=== PATIENT | male | born 1990 | race Hispanic/Latino ===

== ENCOUNTER 2025-01-13 03:00 | Emergency (ER) | payer BC ==
[~2025-01-13] VITALS: Ht 175.3 cm; Wt 94.3 kg
--- NOTE | 2025-01-13 03:07 | NUR ---
COVID, FLU AND STREP SWABS COLLECTED AND SENT
[2025-01-13 03:53] LABS: RAPID GROUP A STREP negative (NEGATIVE)
[2025-01-13 04:01] LABS: SARS-CoV-2, RNA, NAAT NEGATIVE SARS CoV-2 (NEGATIVE)
[2025-01-13 04:02] LABS: INFLUENZA TYPE B Negative For Type B (NEGATIVE)
[2025-01-13 04:05] LABS: INFLUENZA TYPE A Positive For Type A (NEGATIVE)
[2025-01-13] MEDS ORDERED: OSEL75 PO (04:11)
--- NOTE | 2025-01-13 04:12 | ERN ---
ED Note History of Present Illness Stated Complaint: FEVER, BODYACHES, COUGH Chief Complaint: Flu Symptoms Time Seen by MD: 03:02 Dictation: This is a 34-year-old male who presented to the emergency room with a 2 day history of fever with chills body aches and cough. Patient also reported that other family members are sick including his mother who accompanied him to the ER. He reported that he has been coughing up some sputum which is brown at times but denied any hemoptysis to me. He stated that since he has been coughing even his testicles and inguinal area hurts. Patient's mother reported that he had a temp of 101 at home and he has been taking [id number]-dhl-trkxulo NyQuil with no improvement Temperature a 100.2 pulse 92 respirations 20 blood pressure 151/92 with a pulse oximetry of 98% on room air Allergies: Coded Allergies: No Known Allergies (Unverified Allergy, Unknown, 01/13/25) Home Meds Active Scripts Oseltamivir Phosphate (Tamiflu) 75 Mg Cap, 75 MG PO BID for 5 Days, #10 CAP 0 Refills Prov:DOMINGA EDUARDO MD 01/13/25 Past Medical History Past Medical History: No Pertinent History Surgical History: None Family History: Negative Social History: Negative RN Note Reviewed/Agreed w/PFSH: Yes Review of System Dictation Constitutional: Positive for fever,chills, Eyes: Negative for injury, pain,redness, and discharge ENT: Negative for injury,pain or swelling Cardiovascular: Positive for chest discomfort from coughing, denies palpitations, and edema Respiratory: Negative for shortness of breath, cough, and wheezing, Abdomen/GI: Negative for abdominal pain, nausea, vomiting, diarrhea, and constipation Back: Negative for injury and pain : Negative for injury, bleeding and discharge positive for left inguinal pain from coughing MS/Extremity: Negative for injury and deformity Skin: Negative for rash, and discoloration Neuro: Negative for headache, weakness, numbness, tingling, and seizure Psych: Negative for suicide ideation, homicidal ideation, and hallucinations Initial Vital Sign VS Vital Signs Date Time Temp Pulse Resp B/P (MAP) Pulse Ox O2 Delivery O2 Flow Rate FiO2 01/13/25 03:02 100.2 92 20 151/92 98 Room Air 01/13/25 04:18 0 21 Physical Exam Dictation General: awake, alert, NAD coughing during the examination Head/Face: Normocephalic, atraumatic Eyes: PERRL, EOMI, vision at baseline ENT: oral cavity clear, TMs clear, no signs of infection Neck: Trachea midline, supple, no nuchal rigidity Cardiovascular: RRR, normal S1/S2, No MRGs, no JVD Respiratory: CTAB, no respiratory distress, No rales or wheezes Abdomen: Soft, mild tenderness in the left lower quadrant and inguinal area but no erythema rebound, non-distended, normal bowel sounds, no guarding or rebound. Skin: Warm, dry, normal turgor, no rash MS/Extremity: Pulses equal, no cyanosis, neurovascular intact, FROM Neuro: COAx4, GCS 15, strength 5/5, CN 2-12 intact, normal cerebellar exam, normal gait, Psych: Normal behavior, mood, and affect normal Extremities-trace edema without any palpable cords, Homans sign is negative Results (Laboratory/Radiology) Laboratory/Radiology Laboratory Tests Test 01/13/25 03:07 Influenza Type A Antigen Positive For Type A Influenza Type B Antigen Negative For Type B SARS-CoV-2, RNA, NAAT NEGATIVE SARS CoV-2 Group A Streptococcus Rapid negative (NEGATIVE) Labs Reviewed?: Yes ED Course ED Course Orders Procedure Category Date Status Time Influenza Type A & B, LAB 01/13/25 Complete Rapid 03:05 Rapid (Group A Strep) LAB 01/13/25 Complete 03:05 Chest 1vw RAD 01/13/25 Taken 03:05 Covid Rna Naat LAB 01/13/25 Complete 03:45 Oseltamivir Phosphate PHA 01/13/25 Complete (Tamiflu) 04:30 Ketorolac PHA 01/13/25 Complete Tromethamine 30mg/Ml 04:30 Acetaminophen 500mg PHA 01/13/25 Complete Tab (Tylenol 500mg T 04:30 Current Medications Medications (Trade) Dose Ordered Sig/Ada Route PRN Reason Start Time Stop Time Status Last Admin Dose Admin Acetaminophen (TYLenol 500MG TAB) 1,000 mg ONCE ONCE PO 01/13/25 04:30 01/13/25 04:31 DC 01/13/25 04:25 Ketorolac Tromethamine (toRADol) 30 mg ONCE ONCE IM 01/13/25 04:30 01/13/25 04:31 DC 01/13/25 04:31 Oseltamivir Phosphate (Tamiflu) 75 mg ONCE ONCE PO 01/13/25 04:30 01/13/25 04:31 DC 01/13/25 04:25 Vital Signs Date Time Temp Pulse Resp B/P (MAP) Pulse Ox O2 Delivery O2 Flow Rate FiO2 01/13/25 04:25 102.7 01/13/25 04:18 102.7 83 18 126/59 97 Room Air* 0 21 01/13/25 03:02 100.2 92 20 151/92 98 Room Air Medical Decision Making MDM Differential diagnosis: Influenza, COVID, RSV, streptococcal pharyngitis, otitis media, acute viral syndrome This is a 34-year-old male who presented to the emergency room with a 2 day history of fever with chills body aches and cough. Patient also reported that other family members are sick including his mother who accompanied him to the ER. He reported that he has been coughing up some sputum which is brown at times but denied any hemoptysis to mo. He stated that since he has been coughing even his testicles and inguinal area hurts. Patient's mother reported that he had a temp of 101 at home and he has been taking [id number]-ect-pchlpqr NyQuil with no improvement Temperature a 100.2 pulse 92 respirations 20 blood pressure 151/92 with a pulse oximetry of 98% on room air Serology testing for influenza a positive. Influenza B COVID and strep rapid t est are all negative. Chest x-ray shows mild prominence of the interstitial markings with possible early infiltrate in the left base. I do not have any old x-ray to compare. A dose of Tamiflu, and symptomatic management. Patient will be discharged to [facility] on Tamiflu and a Z-Fredy for any superimposed bronchitis Rationale: Tests considered and ordered secondary to shared decision making include: Previous outside records reviewed: Old ER visits. Risk of complication and/or morbidity or mortality of patient management: None Medications-Per medication reconciliation Need for hospitalization: Patient does not meet criteria for hospitalization. Need for emergency major/minor surgery: No There are no social concerns with this patient. Prescription drug management Prescriptions will include symptomatic care Patient's prior external medical records from other ER visits were reviewed by shasha rosario as indicated. Prior testing and results from previous visits were reviewed. Prior tests were taken into account with medical decision making and resource utilization, independent historian/historians were used to obtain complete medical history. I independently interpreted the test that were performed, results were reviewed by me and considered findings on radiology if ordered. Medical management and examination interpretation discussions were had by me with other qualified healthcare professionals as indicated for the patient's care. Problem List Problem List: (1) Influenza A DX & DISP Disposition: Discharge Departure Impression: Primary Impression: Influenza A Additional Impression: Pneumonia Condition: Stable Scripts Azithromycin (Zithromax) 500 Mg Tablet 1 TAB PO DAILY for 5 Days, #5 TAB 0 Refills Prov: DOMINGA EDUARDO MD 01/13/25 Oseltamivir Phosphate (Tamiflu) 75 Mg Cap 75 MG PO BID for 5 Days, #10 CAP 0 Refills Prov: DOMINGA EDUARDO MD 01/13/25 Additional Instructions: Patient and the caregiver have been informed of all the diagnostic tests and the imaging conducted during the today's visit to the emergency room and has verbalized understanding of the results I have personally reviewed and interpreted all diagnostic exams performed here in the ER today as well as the vital signs documented by the nursing staff. The patient is now being discharged to home and should follow up with the primary care physician or the specialist as directed by the ER staff. Instructed to take bowt-tiu-teoobcw pain medication as well as cough syrup. If symptoms do not improve over the next 5 days, return to the emergency room or follow up with the primary care physician DOMINGA EDUARDO MD Jan 13, 2025 04:12
[2025-01-13 04:18] VITALS: BP 126/59; PULSE 83; RESP 18; TEMP 102.7; O2SAT 97
[2025-01-13 04:25] VITALS: TEMP 102.7
[2025-01-13] MEDS: OSELTAMIVIR PHOSPHATE 75 MG CAP PO ONE (04:25)
[2025-01-13] MEDS ORDERED: AZIT500T PO (04:47)
--- NOTE | 2025-01-13 05:12 | HMCIMG ---
EXAM: CR Chest, 1 View. CLINICAL HISTORY: PRODUCTIVE PAINFUL COUGH COMPARISON: None provided. FINDINGS: LUNGS: There is no mass, infiltrate, or acute pulmonary abnormality. PLEURAL SPACES: No pleural effusion or pneumothorax. MEDIASTINUM: Cardiac size and mediastinal contours are within normal limits. BONES: No aggressively appearing osseous lesion was seen. IMPRESSION: No acute cardiopulmonary pathology is evident. /[place]
== END 2025-01-13 04:56 | disposition home or self-care (01) ==
LOC: EDH 03:00
DX: J10.00 Influenza due to other identified influenza virus with unspecified type of pneumonia (principal); Z20.822 Contact with and (suspected) exposure to COVID-19
CPT/HCPCS: 99284; 71045; 87635; 87880; 87804 ×2; 96372; J1885